=== PATIENT | male | born 1980 | race African-American/Black ===

== ENCOUNTER 2020-04-26 17:20 | Emergency (ER) | payer OTHER ==
[~2020-04-26] VITALS: Ht 160 cm; Wt 90.0 kg
[2020-04-26] MEDS ORDERED: METFORMIN (17:28)
[2020-04-26] MEDS ORDERED: BP MED (17:28)
[2020-04-26] MEDS ORDERED: [UNRECOGNIZED DRUG - OTHER] (17:28)
[2020-04-26] MEDS ORDERED: OMEP-218 (17:28)
[2020-04-26] MEDS ORDERED: IBUPROFEN 800 MG TAB PO ONE (18:30)
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
[2020-04-26 19:53] VITALS: BP 160/100
== END 2020-04-26 20:02 | disposition home or self-care (01) ==
LOC: M ED 17:20
DX: S46.911A Strain of unspecified muscle, fascia and tendon at shoulder and upper arm level, right arm, initial encounter (principal); S62.306A Unspecified fracture of fifth metacarpal bone, right hand, initial encounter for closed fracture; V49.40XA Driver injured in collision with unspecified motor vehicles in traffic accident, initial encounter

== ENCOUNTER 2020-09-23 13:06 | Emergency (ER) | payer OTHER ==
[~2020-09-23] VITALS: Ht 160 cm; Wt 84.2 kg
[~2020-09-23 13:06] MED LIST: BP MED; METFORMIN; OMEP-218; [UNRECOGNIZED DRUG - OTHER]
[2020-09-23] MEDS ORDERED: METF500T13 PO (13:40)
[2020-09-23] MEDS ORDERED: ROSU20TA5 PO (13:41)
[2020-09-23] MEDS ORDERED: MELO15TA28 PO (13:42)
[2020-09-23] MEDS ORDERED: D3 +TAB PO (13:42)
[2020-09-23] MEDS ORDERED: NESI12.5 PO (13:43)
[2020-09-23] MEDS ORDERED: NS 1,000 ML IV ONE (14:00)
[2020-09-23 14:08] LABS: BASO % 0.2 % (0.0-1.0); EOS % 0.2 % (0.0-3.0); HEMATOCRIT 39.1 % (42.0-52.0); HEMOGLOBIN 12.8 g/dl (13.5-17.5); LYMPH % 17.2 % (24.0-44.0); MEAN CORPUSCULAR HEMOGLOBIN 26.7 pg (27.0-33.0); MEAN CORPUSCULAR HGB CONC 32.7 g/dl (32.0-36.5); MEAN CORPUSCULAR VOLUME 81.5 fl (80.0-96.0); MONO # 0.4 10^3/uL (0.0-0.8); MONO % 5.9 % (0.0-5.0); NEUTROPHILS # 4.5 10^3/uL (1.5-8.5); NEUTROPHILS % 76.2 % (36.0-66.0); PLATELET COUNT, AUTOMATED 187 10^3/uL (150-450); WHITE BLOOD COUNT 5.9 10^3/uL (4.0-10.0)
[2020-09-23 14:09] LABS: AMORPHOUS SEDIMENT SMALL (NEGATIVE); APPEARANCE, URINE CLOUDY (CLEAR); BACTERIA, URINE AUTO NEGATIVE (NEGATIVE); BILIRUBIN, URINE AUTO NEGATIVE (NEGATIVE); BLOOD, URINE BLOOD 2+ (NEGATIVE); COLOR, URINE YELLOW (YELLOW); GLUCOSE, URINE (UA) AUTO 1+ mg/dL (NEGATIVE); GRANULAR CAST, URINE AUTO 7 /LPF; KETONE, URINE AUTO 1+ mg/dL (NEGATIVE); LEUKOCYTE ESTERASE, URINE AUTO NEGATIVE (NEGATIVE); MUCUS, URINE SMALL (NEGATIVE); NITRITE, URINE AUTO NEGATIVE (NEGATIVE); PROTEIN, URINE AUTO 3+ mg/dL (NEGATIVE); RBC, URINE AUTO 1 /HPF (0-3); SPECIFIC GRAVITY URINE AUTO 1.025 (1.002-1.035); SQUAMOUS EPITHELIAL CELL UR AU 1 /HPF (0-6); UROBILINOGEN, URINE AUTO 0.2 mg/dL (0.0-2.0); WBC, URINE AUTO 2 /HPF (0-3)
--- NOTE | 2020-09-23 14:28 | REP ---
INDICATION: constipation, chest pressure. COMPARISON: 06/18/2010. TECHNIQUE: Supine and erect views of the abdomen are performed as well as a PA view of the chest. FINDINGS: There is no evidence of free intraperitoneal air. There is no evidence of bowel obstruction. No significantly dilated bowel loops are seen. There are vascular calcifications in the pelvis. The visualized osseous structures appear unremarkable. Diffuse patchy infiltrates are seen throughout both lungs. The heart is not enlarged. The mediastinal silhouette appears unremarkable. IMPRESSION: No free air or obstruction. Diffuse bilateral infiltrates in the lungs. <Electronically signed by Clifton Larkin > 09/23/20 [id number]
[2020-09-23 15:13] LABS: RSV AMPLIFICATION NEGATIVE (NEGATIVE)
[2020-09-23] MEDS ORDERED: ACETAMINOPHEN 325 MG TAB PO ONE (16:00)
[2020-09-23] MEDS ORDERED: ALBUTEROL 90 MCG/ACT 8GM HFA INHALER INH ONE (16:00)
[2020-09-23] MEDS ORDERED: NS 1,000 ML IV SCH (16:13)
[2020-09-23] MEDS ORDERED: ACETAMINOPHEN TAB 650MG DOSE (2X325MG) PO ONE (16:15)
[2020-09-23] MEDS ORDERED: diphenhydrAMINE 50MG CAP PO ONE (16:15)
[2020-09-23] MEDS ORDERED: methylPREDNISolone 125MG 2ML VIAL IV PRN (16:15)
[2020-09-23] MEDS ORDERED: CASIRIVIMAB (REGN10933) 1,200 MG, IMDEVIMAB (REGN10987) 1,200 MG in NS 230 ML IV ONE (16:15)
[2020-09-23] MEDS ORDERED: ALBUTEROL 90 MCG/ACT 8GM HFA INHALER INH PRN (16:15)
[2020-09-23] MEDS ORDERED: ALBUTEROL SULFATE 2.5 MG/0.5 ML INH NEB SOLN INH PRN (16:15)
[2020-09-23] MEDS ORDERED: methylPREDNISolone 125MG 2ML VIAL IV ONE (16:15)
[2020-09-23] MEDS ORDERED: EPINEPHrine INJ 1 MG/ML 1ML AMP IM PRN (16:15)
[2020-09-23] MEDS ORDERED: diphenhydrAMINE 50MG/ML VIAL (J1200) IV PRN (16:15)
[2020-09-23 16:51] VITALS: BP 105/69
[2020-09-23] MEDS ORDERED: MIRA3350 PO (17:38)
[2020-09-23] MEDS ORDERED: COLA100C5 PO (17:38)
--- NOTE | 2020-09-23 19:13 | CR ---
CONSULTATION DATE: 09/23/2020 REQUESTING PHYSICIAN: Dr. Larkin in the emergency room. HISTORY OF PRESENT ILLNESS: This is an ER evaluation for this 40-year-old type 2 diabetic with hyperlipidemia who presented with nausea, vomiting, diarrhea, and was found to be COVID positive and is a candidate for monoclonal antibody therapy, who is being treated as an outpatient for through the hospitalist serve for this. PAST MEDICAL HISTORY: 1. Vitamin D deficiency. 2. Type 2 diabetes. 3. Hyperlipidemia. ALLERGIES: None known. SOCIAL HISTORY: Unremarkable. REVIEW OF SYSTEMS: No polyuria or polydipsia. No rectal bleeding or epistaxis. No history of severe allergic problems. PHYSICAL EXAMINATION: VITAL SIGNS: Per flow sheet. GENERAL APPEARANCE: Alert and conversant, in no distress. LUNGS: Clear. HEART: Regular rhythm. ABDOMEN: Soft and nontender. No masses. EXTREMITIES: No peripheral edema. Normal strength of the arms and legs. No warmth or swelling of the joints. No lymphadenopathy. LABORATORY DATA: CBC with white count 5.9, hemoglobin 12.8, platelets 187,000. COVID was positive. Sodium 140, potassium 4.1, BUN 15, creatinine 1.0, glucose 114. IMAGING DATA: Abdominal x-rays were unremarkable. He had diffuse bilateral infiltrates in the lungs that were visualized. IMPRESSION: COVID infection. The patient's O2 saturation is in the mid 90s and does not warrant admission. He would be a candidate for monoclonal antibody therapy, which I ordered. He should follow-up with primary care provider. Appropriate precautions about monoclonal antibody provided. He signed consent. He should forego vaccination for COVID-19 for at least 60-90 days from positive COVID infection and receiving monoclonal antibody. He is aware of this.
[2020-09-24] MEDS ORDERED: METF-838 PO (17:27)
[2020-09-24] MEDS ORDERED: ACET-683 PO (17:27)
[2020-09-24] MEDS ORDERED: ROSU40TA4 PO (17:27)
[2020-09-24] MEDS ORDERED: POLY1POW38 PO (17:27)
[2020-09-24] MEDS ORDERED: D-10TAB2 PO (17:27)
[2020-09-24] MEDS ORDERED: OMEP-221 PO (17:27)
[2020-09-24] MEDS ORDERED: DOCU100C16 PO (17:28)
== END 2020-09-23 17:28 | disposition home or self-care (01) ==
LOC: M ED 13:06
DX: J12.9 Viral pneumonia, unspecified (principal); U07.1 COVID-19; K59.00 Constipation, unspecified; I10 Essential (primary) hypertension; E11.9 Type 2 diabetes mellitus without complications; E55.9 Vitamin D deficiency, unspecified; E78.5 Hyperlipidemia, unspecified; K21.9 Gastro-esophageal reflux disease without esophagitis; Z79.899 Other long term (current) drug therapy; Z79.84 Long term (current) use of oral hypoglycemic drugs

== ENCOUNTER 2020-09-23 17:30 | Outpatient (CLI) | payer OTHER ==
[~2020-09-23] VITALS: Ht 160 cm; Wt 86.1 kg
[~2020-09-23 17:30] MED LIST changes: +ALBUTEROL 90 MCG/ACT 8GM HFA INHALER INH PRN; +ALBUTEROL SULFATE 2.5 MG/0.5 ML INH NEB SOLN INH PRN; +D3 +TAB PO; +EPINEPHrine INJ 1 MG/ML 1ML AMP IM PRN; +MELO15TA28 PO; +METF500T13 PO; +NESI12.5 PO; +ROSU20TA5 PO; +diphenhydrAMINE 50MG/ML VIAL (J1200) IV PRN; +methylPREDNISolone 125MG 2ML VIAL IV PRN
[2020-09-23] MEDS ORDERED: MIRA3350 PO (17:38)
[2020-09-23] MEDS ORDERED: COLA100C5 PO (17:38)
[2020-09-23 17:46] VITALS: BP 139/82
[2020-09-23] MEDS ORDERED: diphenhydrAMINE 50MG CAP PO ONE (18:00)
[2020-09-23] MEDS ORDERED: NS 1,000 ML IV SCH (18:00)
[2020-09-23] MEDS ORDERED: ACETAMINOPHEN TAB 650MG DOSE (2X325MG) PO ONE (18:00)
[2020-09-23] MEDS ORDERED: methylPREDNISolone 40MG 1ML VIAL IV ONE (18:00)
[2020-09-23 18:20] VITALS: BP 155/75
[2020-09-23] MEDS ORDERED: CASIRIVIMAB (REGN10933) 1,200 MG, IMDEVIMAB (REGN10987) 1,200 MG in NS 230 ML IV ONE (18:30)
[2020-09-23 18:34] VITALS: BP 138/83
[2020-09-23 19:05] VITALS: BP 137/84
[2020-09-23 19:39] VITALS: BP 136/84
[2020-09-23 20:28] VITALS: BP 137/81
[2020-09-24] MEDS ORDERED: ROSU40TA4 PO (17:27)
[2020-09-24] MEDS ORDERED: OMEP-221 PO (17:27)
[2020-09-24] MEDS ORDERED: POLY1POW38 PO (17:27)
[2020-09-24] MEDS ORDERED: D-10TAB2 PO (17:27)
[2020-09-24] MEDS ORDERED: METF-838 PO (17:27)
[2020-09-24] MEDS ORDERED: ACET-683 PO (17:27)
[2020-09-24] MEDS ORDERED: DOCU100C16 PO (17:28)
== END 2020-09-23 20:50 | disposition home or self-care (01) ==
LOC: M OPCLI4 17:30 → M 4MAIN 17:35 → M OPCLI4 20:50
PROVIDERS: ATTEND Family Medicine
DX: U07.1 COVID-19 (principal)

== ENCOUNTER 2020-09-24 15:18 | Inpatient (IN) | payer OTHER ==
[~2020-09-24] VITALS: Ht 160 cm; Wt 84.1 kg
[~2020-09-24 15:18] MED LIST changes: -ALBUTEROL 90 MCG/ACT 8GM HFA INHALER INH PRN; -ALBUTEROL SULFATE 2.5 MG/0.5 ML INH NEB SOLN INH PRN; +COLA100C5 PO; -EPINEPHrine INJ 1 MG/ML 1ML AMP IM PRN; +MIRA3350 PO; -diphenhydrAMINE 50MG/ML VIAL (J1200) IV PRN; -methylPREDNISolone 125MG 2ML VIAL IV PRN
[2020-09-24 16:09] LABS: BASO % 0.1 % (0.0-1.0); HEMATOCRIT 38.8 % (42.0-52.0); HEMOGLOBIN 12.7 g/dl (13.5-17.5); LYMPH # 0.8 10^3/uL (1.5-5.0); LYMPH % 6.5 % (24.0-44.0); MEAN CORPUSCULAR HEMOGLOBIN 26.5 pg (27.0-33.0); MEAN CORPUSCULAR HGB CONC 32.7 g/dl (32.0-36.5); MEAN CORPUSCULAR VOLUME 80.8 fl (80.0-96.0); MONO # 0.4 10^3/uL (0.0-0.8); MONO % 3.2 % (0.0-5.0); NEUTROPHILS # 10.6 10^3/uL (1.5-8.5); NEUTROPHILS % 89.6 % (36.0-66.0); PLATELET COUNT, AUTOMATED 209 10^3/uL (150-450); WHITE BLOOD COUNT 11.8 10^3/uL (4.0-10.0)
[2020-09-24 16:14] LABS: INR 1.02; PROTHROMBIN TIME 13.6 SECONDS (12.5-14.3)
[2020-09-24 16:17] LABS: D-DIMER QUANT 1317.85 ng/ml (<500)
--- NOTE | 2020-09-24 16:38 | REP ---
INDICATION: DYSPNEA/COUGH COMPARISON: 09/23/2020 TECHNIQUE: Portable AP view of the chest FINDINGS: Diffuse bilateral infiltrates are again noted and may be slightly increased from prior examination. No effusion. No pneumothorax. Mediastinum and cardiac silhouette normal. IMPRESSION: Increasing bilateral infiltrates. Patient should be evaluated for COVID-19 disease. <Electronically signed by Albert Castrejon > 09/24/20 [id number]
[2020-09-24 16:43] LABS: ALBUMIN 2.8 GM/DL (3.2-5.2); ALT/SGPT 22 U/L (12-78); BILIRUBIN,DIRECT 0.2 MG/DL (0.0-0.2); BILIRUBIN,TOTAL 0.6 MG/DL (0.2-1.0); BLOOD UREA NITROGEN 25 MG/DL (7-18); CALCIUM LEVEL 8.8 MG/DL (8.5-10.1); CARBON DIOXIDE LEVEL 24 MEQ/L (21-32); CHLORIDE LEVEL 101 MEQ/L (98-107); CK-MB VALUE MASS < 1.0 NG/ML (<3.6); CPK CREATINE PHOSPHOKINASE 343 U/L (39-308); CREATININE FOR GFR 1.57 MG/DL (0.70-1.30); FERRITIN 705 NG/ML (26-388); GLOMERULAR FILTRATION RATE > 60.0 (>60); GLUCOSE, FASTING 185 MG/DL (70-100); LDH LACTATE DEHYDROGENASE 488 U/L (87-241); MB/CK RELATIVE INDEX 0.29 (< OR =4); NT-PRO BNP 549 PG/ML (<125); POTASSIUM SERUM 4.2 MEQ/L (3.5-5.1); SODIUM LEVEL 134 MEQ/L (136-145); THYROXINE (T4) 8.9 UG/DL (4.5-12.0); TROPONIN I < 0.02 NG/ML (< 0.10)
[2020-09-24] MEDS ORDERED: dexameTHASONE 20MG/5ML VIAL (J1100 PER 1MG) IV ONE (17:00)
[2020-09-24] MEDS ORDERED: OMEP-221 PO (17:27)
[2020-09-24] MEDS ORDERED: D-10TAB2 PO (17:27)
[2020-09-24] MEDS ORDERED: ACET-683 PO (17:27)
[2020-09-24] MEDS ORDERED: ROSU40TA4 PO (17:27)
[2020-09-24] MEDS ORDERED: METF-838 PO (17:27)
[2020-09-24] MEDS ORDERED: POLY1POW38 PO (17:27)
[2020-09-24] MEDS ORDERED: DOCU100C16 PO (17:28)
[2020-09-24] MEDS ORDERED: GLUCOSE 4GM CHEW TABLET PO PRN (18:00)
[2020-09-24] MEDS ORDERED: GLUCAGON INJ 1MG VIAL SC PRN (18:00)
[2020-09-24] MEDS ORDERED: DEXTROSE 50% 50 ML SYRINGE IV PRN (18:00)
[2020-09-24] MEDS ORDERED: ENOXAPARIN 80MG/0.8ML SYRINGE (J1650 PER 10MG) SC SCH (18:00)
[2020-09-24 18:39] LABS: BASO % 0.1 % (0.0-1.0); HEMOGLOBIN 12.2 g/dl (13.5-17.5); LYMPH # 0.7 10^3/uL (1.5-5.0); MEAN CORPUSCULAR HEMOGLOBIN 26.4 pg (27.0-33.0); MEAN CORPUSCULAR VOLUME 80.1 fl (80.0-96.0); MONO # 0.3 10^3/uL (0.0-0.8); MONO % 2.4 % (0.0-5.0); NEUTROPHILS # 9.2 10^3/uL (1.5-8.5); PLATELET COUNT, AUTOMATED 205 10^3/uL (150-450); RED BLOOD COUNT 4.62 10^6/uL (4.30-6.10); WHITE BLOOD COUNT 10.2 10^3/uL (4.0-10.0)
[2020-09-24 18:48] LABS: INR 1.08; PROTHROMBIN TIME 14.2 SECONDS (12.5-14.3)
[2020-09-24 18:49] LABS: PARTIAL THROMBOPLASTIN TIME 34.9 SECONDS (24.2-38.5)
[2020-09-24 18:52] LABS: D-DIMER QUANT 1242.13 ng/ml (<500)
[2020-09-24 19:13] LABS: ALT/SGPT 20 U/L (12-78); BLOOD UREA NITROGEN 26 MG/DL (7-18); CALCIUM LEVEL 8.7 MG/DL (8.5-10.1); CARBON DIOXIDE LEVEL 22 MEQ/L (21-32); CHLORIDE LEVEL 103 MEQ/L (98-107); CPK CREATINE PHOSPHOKINASE 337 U/L (39-308); CREATININE FOR GFR 1.48 MG/DL (0.70-1.30); GLOMERULAR FILTRATION RATE > 60.0 (>60); GLUCOSE, FASTING 186 MG/DL (70-100); LDH LACTATE DEHYDROGENASE 518 U/L (87-241); POTASSIUM SERUM 4.2 MEQ/L (3.5-5.1); SODIUM LEVEL 135 MEQ/L (136-145)
[2020-09-24 19:14] LABS: ALBUMIN 2.6 GM/DL (3.2-5.2); BILIRUBIN,DIRECT 0.2 MG/DL (0.0-0.2); BILIRUBIN,TOTAL 0.5 MG/DL (0.2-1.0); FERRITIN 706 NG/ML (26-388); MAGNESIUM LEVEL 2.2 MG/DL (1.8-2.4); NT-PRO BNP 526 PG/ML (<125); TOTAL PROTEIN 6.7 GM/DL (6.4-8.2); TROPONIN I < 0.02 NG/ML (< 0.10)
[2020-09-24] MEDS ORDERED: REMDESIVIR 200 MG in NS 250 ML IV ONE (20:00)
[2020-09-24 20:45] VITALS: BP 170/94; O2SAT 90
[2020-09-24] MEDS: HumaLOG INSULIN (NovoLOG) PER UNIT SC SCH (21:47)
[2020-09-24] MEDS ORDERED: SODIUM CHLORIDE 0.9% INJ 10 ML SYR IV ONE (22:00)
[2020-09-25] VITALS (7 sets, daily range): BP systolic 144–172; BP diastolic 74–91; O2SAT 92–93
[2020-09-25 07:34] LABS: HEMOGLOBIN 12.1 g/dl (13.5-17.5); MEAN CORPUSCULAR HEMOGLOBIN 26.5 pg (27.0-33.0); MEAN CORPUSCULAR HGB CONC 32.7 g/dl (32.0-36.5); PLATELET COUNT, AUTOMATED 213 10^3/uL (150-450); RED BLOOD COUNT 4.57 10^6/uL (4.30-6.10)
[2020-09-25 08:03] LABS: ALBUMIN 2.3 GM/DL (3.2-5.2); ALT/SGPT 18 U/L (12-78); BILIRUBIN,DIRECT < 0.1 MG/DL (0.0-0.2); BILIRUBIN,TOTAL 0.3 MG/DL (0.2-1.0); BLOOD UREA NITROGEN 31 MG/DL (7-18); CALCIUM LEVEL 8.5 MG/DL (8.5-10.1); CARBON DIOXIDE LEVEL 22 MEQ/L (21-32); CHLORIDE LEVEL 104 MEQ/L (98-107); CREATININE FOR GFR 1.55 MG/DL (0.70-1.30); GLOMERULAR FILTRATION RATE > 60.0 (>60); GLUCOSE, FASTING 261 MG/DL (70-100); MAGNESIUM LEVEL 2.3 MG/DL (1.8-2.4); POTASSIUM SERUM 4.2 MEQ/L (3.5-5.1); SODIUM LEVEL 136 MEQ/L (136-145); TOTAL PROTEIN 7.5 GM/DL (6.4-8.2)
--- NOTE | 2020-09-25 08:54 | ECGEPIP ---
[facility] - ED Test Date: 2020-09-24 Pat Name: AMALIA MUNGUIA Department: Room: - Gender: Male Credit Director: ty : 1980 Requested By: DIETER Haley Order Number: [id number] Reading MD: Vianca Walsh Measurements Intervals Winn Rate: 116 P: 45 NC: 132 QRS: 31 QRSD: 83 T: 30 QT: 313 QTc: 436 Interpretive Statements SINUS TACHYCARDIA NSTTW abnormalities NO PRIOR Electronically Signed on 09-25-2020 8:54:32 EST by Vianca Walsh
[2020-09-25] MEDS ORDERED: INFLUENZA QUADRIVALENT PF VACCINE 0.5ML SYRINGE IM ONE (09:00)
[2020-09-25] MEDS: ASPIRIN 81 MG ENTERIC TAB PO SCH (10:14)
[2020-09-25] MEDS: PANTOPRAZOLE 40MG TAB (PROTONIX) PO SCH (10:14)
[2020-09-25] MEDS: dexameTHASONE 4 MG/ML 1ML VIAL (J1100 PER 1MG) IV SCH (10:15)
[2020-09-25] MEDS: HumaLOG INSULIN (NovoLOG) PER UNIT SC SCH ×4 (10:15→21:00)
[2020-09-25] MEDS: amLODIPine 5 MG TAB PO SCH (10:51)
[2020-09-25] MEDS: ZINC SULFATE 220 MG CAP PO SCH (10:51)
[2020-09-25] MEDS: ASCORBIC ACID 250 MG TAB PO SCH (10:51)
[2020-09-25] MEDS: ENOXAPARIN 40MG/0.4ML SYRINGE (J1650 PER 10MG) SC SCH ×2 (10:52→21:14)
[2020-09-25] MEDS: CALCIUM CARBONATE 500 MG CHEW U/D PO PRN (18:31)
--- NOTE | 2020-09-25 18:39 | IPNPDOC ---
Text Note Date of Service The patient was seen on 09/25/20. NOTE Subjective No acute events overnight. Patient has been afebrile since admission. He is sating at 90% on 5L nasal canula and has been hypertensive since time of admis cory. Patient admits to exertional shortness of breath. He denies any headache, visual changes, sore throat, cough, congestion, edema. Objective VITAL SIGNS: Please see below. GENERAL: Patient was interviewed and examined in his hospital room. He was found to be resting comfortably. HEENT: normocephalic, atraumatic, EOMI, sclera nonicteric, MMM CARDIOVASCULAR EXAMINATION: Regular rate and rhythm, no appreciable murmur RESPIRATORY EXAMINATION: Clear to auscultation with fair air movement. No wheezes or rales, examination limited by disposable stethoscope. EXTREMITIES: Radial and posterior tibial pulses 2+ bilaterally. No lower extremity swelling or edema. Patient is able to move his extremities without difficulty. No calf tenderness bilaterally. SKIN: No appreciable rashes or new skin lesions NEUROLOGICAL EXAMINATION: Awake, alert, oriented 3, cranial nerves are grossly intact Assessment/Plan Mr. Curran is a 40 y.o. male with history of type 2 DM, hyperlipidemia, hypertension, and sleep apnea (uses C-PAP at home) who initially presented to the ED on 09/23 complaining of abdominal pain, nausea, vomiting, and diarrhea. He was tested positive for COVID at that time. He was taken from the ED to be treated with monoclonal antibodies as outpatient on that same day. His infusion was completed at 1939 on 09/23 and he was subsequently discharged home. On 09/24 he noticed that his pulse ox was low and called Home Health, after which he was instructed to present to the ED. Upon his arrival at ED he was sating at 82% on room air and was admitted. # Pneumonia with hypoxia 2/2 to COVID-19 - Patient is currently on 5 L nasal canula. Will continue to monitor sats - Currently on Remdesivir day#2 - Zinc and vitamin C PO daily ordered - Patient received monoclonal antibody therapy on 09/23 - Have patient using incentive spirometer, proning, and out of bed to chair 3 times a day # Hypertension - Given amlodipine 5 mg PO daily - If patient's pressures remain elevated, plan to discharge on GUSTABO inhibitor given patient's ethnicity and comorbid diabetes. # Type 2 Diabetes Mellitus - Continue with Humalog insulin Disposition Anticipate discharge within the next 2-3 days. DVT Prophylaxis Patient originally given 80 mg Lovenox BID. Dose has been decreased to 40 mg Lovenox BID VS,Fishbone, I+O VS, Fishbone, I+O Laboratory Tests 09/24/20 15:47 09/24/20 18:25 09/25/20 07:01 Vital Signs Date Time Temp Pulse Resp B/P (MAP) Pulse Ox O2 Delivery O2 Flow Rate FiO2 09/25/20 10:51 97 167/87 09/25/20 08:00 98.8 20 90 Nasal Cannula 5.0 I&O- Last 24 Hours up to 6 AM 09/25/20 06:00 Intake Total 0 ml Output Total 0 ml Balance 0 ml GME ATTESTATION GME ATTESTATION My faculty preceptor for this patient encounter was physically present during the encounter and was fully available. All aspects of the patient interview, examination, medical decision making process, and medical care plan development were reviewed and approved by the faculty preceptor. The faculty preceptor is aware and concurs with the plan as stated in the body of this note and will attest to such by his/her cosignature. ATTENDING NOTE I, Tony Ocampo MD, have independently examined this patient and performed my own physical exam, as well as reviewed the documentation and edited where necessary. I have discussed in detail with the resident / student the findings and plan of treatment as documented by the resident / student and edited their note. I agree with their findings and treatment plan and have edited their documentation. GME ATTESTATION GME ATTESTATION My faculty preceptor for this patient encounter was physically present during the encounter and was fully available. All aspects of the patient interview, examination, medical decision making process, and medical care plan development were reviewed and approved by the faculty preceptor. The faculty preceptor is aware and concurs with the plan as stated in the body of this note and will attest to such by his/her cosignature. Joelle BOCANEGRA OMS-3 Sep 25, 2020 11:19 LISETH DENNEY DO Sep 25, 2020 18:39 TONY OCAMPO MD Sep 28, 2020 14:19
[2020-09-25] MEDS: REMDESIVIR 100 MG in NS 250 ML IV SCH (21:14)
[2020-09-25] MEDS: SODIUM CHLORIDE 0.9% INJ 10 ML SYR IV SCH (21:16)
[2020-09-26 04:51] VITALS: BP 132/78
[2020-09-26] MEDS: cefTRIAXone SOD 1 GM in D5W MINI-BAG PLUS 50 ML IV SCH (05:00)
[2020-09-26] MEDS: AZITHROMYCIN INJ 500 MG, VIAL MATE ADAPTER 1 EACH in D5W 250 ML IV SCH (05:54)
--- NOTE | 2020-09-26 06:03 | REPVR ---
PROCEDURE INFORMATION: Exam: XR Chest, 1 View Exam date and time: 09/26/2020 5:24 AM Age: 40 years old Clinical indication: Other: Covid; Additional info: Increasing oxygen requirements TECHNIQUE: Imaging protocol: XR of the chest Views: 1 view. COMPARISON: CR PORTABLE CHEST X-RAY 09/24/2020 4:17 PM FINDINGS: Lungs: There is bilateral patchy lung infiltrates. Pleural spaces: Unremarkable. No pleural effusion. No pneumothorax. Heart/Mediastinum: Unremarkable. No cardiomegaly. Bones/joints: Unremarkable. IMPRESSION: Patchy bilateral lung infiltrates, grossly unchanged. Findings are nonspecific and can be seen with multiple infectious and non infectious etiologies including COVID 19 pneumonia. Electronically signed by: Saurav Mandel On 09/26/2020 06:02:33 AM
[2020-09-26 06:34] LABS: HEMATOCRIT 36.6 % (42.0-52.0); HEMOGLOBIN 12.3 g/dl (13.5-17.5); MEAN CORPUSCULAR HEMOGLOBIN 27.2 pg (27.0-33.0); MEAN CORPUSCULAR HGB CONC 33.6 g/dl (32.0-36.5); PLATELET COUNT, AUTOMATED 231 10^3/uL (150-450); RED BLOOD COUNT 4.52 10^6/uL (4.30-6.10); WHITE BLOOD COUNT 9.5 10^3/uL (4.0-10.0)
[2020-09-26 06:54] LABS: INR 0.94; PROTHROMBIN TIME 12.8 SECONDS (12.5-14.3)
[2020-09-26 07:11] LABS: ALBUMIN 2.4 GM/DL (3.2-5.2); ALT/SGPT 18 U/L (12-78); BILIRUBIN,DIRECT 0.1 MG/DL (0.0-0.2); BILIRUBIN,TOTAL 0.3 MG/DL (0.2-1.0); BLOOD UREA NITROGEN 36 MG/DL (7-18); CALCIUM LEVEL 8.2 MG/DL (8.5-10.1); CARBON DIOXIDE LEVEL 24 MEQ/L (21-32); CHLORIDE LEVEL 105 MEQ/L (98-107); CPK CREATINE PHOSPHOKINASE 165 U/L (39-308); CREATININE FOR GFR 1.49 MG/DL (0.70-1.30); FERRITIN 903 NG/ML (26-388); GLOMERULAR FILTRATION RATE > 60.0 (>60); GLUCOSE, FASTING 209 MG/DL (70-100); LDH LACTATE DEHYDROGENASE 526 U/L (87-241); MAGNESIUM LEVEL 2.7 MG/DL (1.8-2.4); NT-PRO BNP 267 PG/ML (<125); POTASSIUM SERUM 4.2 MEQ/L (3.5-5.1); SODIUM LEVEL 139 MEQ/L (136-145); TOTAL PROTEIN 6.6 GM/DL (6.4-8.2); TROPONIN I < 0.02 NG/ML (< 0.10)
[2020-09-26] MEDS: ASCORBIC ACID 250 MG TAB PO SCH (07:51)
[2020-09-26] MEDS: ASPIRIN 81 MG ENTERIC TAB PO SCH (07:51)
[2020-09-26] MEDS: dexameTHASONE 4 MG/ML 1ML VIAL (J1100 PER 1MG) IV SCH (07:52)
[2020-09-26] MEDS: PANTOPRAZOLE 40MG TAB (PROTONIX) PO SCH (07:52)
[2020-09-26] MEDS: ZINC SULFATE 220 MG CAP PO SCH (07:52)
[2020-09-26] MEDS: ENOXAPARIN 40MG/0.4ML SYRINGE (J1650 PER 10MG) SC SCH ×2 (07:52→20:04)
[2020-09-26] MEDS: HumaLOG INSULIN (NovoLOG) PER UNIT SC SCH ×4 (07:53→20:08)
[2020-09-26] MEDS: amLODIPine 5 MG TAB PO SCH (07:55)
[2020-09-26 08:00] VITALS: BP 148/76; O2SAT 92
--- NOTE | 2020-09-26 11:24 | IPNPDOC ---
Text Note Date of Service The patient was seen on 09/26/20. NOTE Subjective Patient was desating overnight to around 87% on 5L NC. Vapotherm was initiated at 70FiO2 with significant improvement. so he was started on vapotherm and patient reports sleeping better on vapotherm. Patient has been afebrile and hypertensive since time of admission. Patient admits to exertional shortness of breath. He denies any headache, visual ch anges, sore throat, cough, congestion, edema. Objective VITAL SIGNS: Please see below. GENERAL: Patient was interviewed and examined in his hospital room. He was found to be resting comfortably watching television. He did not appear in acute distress. HEENT: normocephalic, atraumatic, EOMI, sclera nonicteric, MMM CARDIOVASCULAR EXAMINATION: Regular rate and rhythm, no appreciable murmur RESPIRATORY EXAMINATION: Clear to auscultation with fair air movement. No wheezes or rales, examination limited by disposable stethoscope. EXTREMITIES: Radial and posterior tibial pulses 2+ bilaterally. No lower extremity swelling or edema. Patient is able to move his extremities without difficulty. No calf tenderness bilaterally. SKIN: No appreciable rashes or new skin lesions NEUROLOGICAL EXAMINATION: Awake, alert, oriented 3, cranial nerves are grossly intact Assessment/Plan Mr. Curran is a 40 y.o. male with history of type 2 DM, hyperlipidemia, hypertension, and sleep apnea (uses C-PAP at home) who initially presented to the ED on 09/23 complaining of abdominal pain, nausea, vomiting, and diarrhea. He was tested positive for COVID at that time. He was taken from the ED to be treated with monoclonal antibodies as outpatient on that same day. His infusion was completed at 1939 on 09/23 and he was subsequently discharged home. On 09/24 he noticed that his pulse ox was low and called Home Health, after which he was instructed to present to the ED. Upon his arrival at ED he was sating at 82% on room air and was admitted. The evening of 09/25/20, patient was struggling to maintain a saturation of >90% on 5 L NC. He was transitioned to high flow NC and ultimately to Vapotherm. This am, patient continues on Vapotherm with a saturation of 93-94%. # Pneumonia with hypoxia 2/2 to COVID-19 - Patient was switched from 5L nasal canula to vapotherm overnight due to sats dropping to 87%. Will continue to monitor sats - Azithromycin and ceftriaxone started due to the fact that patient desated overnight and had a slightly elevated procalcitonin - Currently on Remdesivir day#3 - Zinc and vitamin C PO daily ordered - Patient received monoclonal antibody therapy on 09/23 - Have patient using incentive spirometer, proning, and out of bed to chair 3 times a day - Will order CRP, ESR, and D-dimer # Hypertension - Given amlodipine 5 mg PO daily - Normotensive today - If patient's pressures remain elevated, plan to discharge on GUSTABO inhibitor given patient's ethnicity and comorbid diabetes. # Type 2 Diabetes Mellitus - Continue with Humalog insulin Disposition Anticipate discharge within the next 2-3 days. DVT Prophylaxis 80 mg Lovenox BID. VS,Fishbone, I+O VS, Fishbone, I+O Laboratory Tests 09/26/20 05:59 Vital Signs Date Time Temp Pulse Resp B/P (MAP) Pulse Ox O2 Delivery O2 Flow Rate FiO2 09/26/20 08:00 97.3 84 18 148/76 (100) 90 HVNI-Vapotherm 15.0 70 I&O- Last 24 Hours up to 6 AM 09/26/20 06:00 Intake Total 1866 ml Output Total 1150 ml Balance 716 ml GME ATTESTATION GME ATTESTATION My faculty preceptor for this patient encounter was physically present during the encounter and was fully available. All aspects of the patient interview, examination, medical decision making process, and medical care plan development were reviewed and approved by the faculty preceptor. The faculty preceptor is aware and concurs with the plan as stated in the body of this note and will attest to such by his/her cosignature. ATTENDING NOTE I, Tony Ocampo MD, have independently examined this patient and performed my own physical exam, as well as reviewed the documentation and edited where necessary. I have discussed in detail with the resident / student the findings and plan of treatment as documented by the resident / student and edited their note. I agree with their findings and treatment plan and have edited their do cumentation. Joelle BOCANEGRA OMS-3 Sep 26, 2020 08:34 LISETH DENNEY DO Sep 26, 2020 11:24 TONY OCAMPO MD Sep 28, 2020 14:20
--- NOTE | 2020-09-26 11:26 | HPE ---
HISTORY AND PHYSICAL DATE OF ADMISSION: 09/24/2020 CHIEF COMPLAINT: Coronavirus disease of 2019 (COVID) pneumonia. HISTORY OF PRESENT ILLNESS: Mahesh Curran is a 40-year-old type-2 diabetic who presented to the Emergency Room with shortness of breath. He has a slight cough. He is known to be COVID positive. He was just admitted yesterday by me as an outpatient for monoclonal antibody treatment. He was COVID positive yesterday. He presented with nausea, vomiting, and diarrhea. He was found to be positive yesterday. He was treated with monoclonal antibody as an outpatient. PAST MEDICAL HISTORY: Type-2 diabetes, hyperlipidemia, vitamin D deficiency. ALLERGIES: None known. SOCIAL HISTORY: Nonsmoker. FAMILY HISTORY: Noncontributory. REVIEW OF SYSTEMS: No hemoptysis. Denies fever. He is still having loose stool but it is better. Crampy abdominal pain persists. No rectal bleeding. No epistaxis. MEDICATIONS: 1. Vitamin D 25 mcg daily. 2. Colace as needed. 3. Metformin ER 500 mg twice a day. 4. MiraLax as needed. 5. Rosuvastatin 40 mg daily. 6. Nesina 12.5 mg daily. 7. Omeprazole 40 mg daily. PHYSICAL EXAMINATION: VITAL SIGNS: Per flow sheet. I was told his O2 saturation was in the low 80s on room air, below 80 with ambulation. I do not find that documentation that came from the ER provider. Blood pressure 147/87, pulse 115, 99.6 degrees. GENERAL APPEARANCE: He is resting comfortably. He does not look terribly ill. He looks the same as yesterday. HEENT: Unremarkable. LUNGS: Scattered rhonchi and wheezes, rales. That is a change from yesterday. HEART: Regular rate and rhythm without murmur. ABDOMEN: Soft, nontender. No masses. EXTREMITIES: No clubbing, cyanosis, or edema. Normal strength in the arms and legs. Good distal pulses. LABS: White count 11.8, hemoglobin 12.7, platelets 209. Sodium 134, potassium 4.2, BUN 25, creatinine 1.5. Baseline creatinine is unknown. Lactic acid 1.6. Ferritin 705. CK 3400, LDH 4800. C-reactive protein 18. TSH normal. D-dimer 1317. IMPRESSION: 1. COVID pneumonia. He will be admitted to a COVID unit. Supplemental oxygen to maintain adequate O2 saturation, and given dexamethasone 6 mg IV daily and remdesivir. Prone positioning advised. 2. With his elevated d-dimer, I have done full anticoagulant Lovenox dosing. 3. Diabetes. Sliding scale Insulin with coverage. Restart oral agents once he is recovering. 4. Chronic kidney disease. His baseline creatinine is 1.3. It is 1.5 today. I am not giving him IV fluids. We are trying to keep him on the dry side. If he worsens he might need some IV hydration. 5. Hyperlipidemia. We will hold off on his rosuvastatin for now. He is on remdesivir which can affect his liver. 6. History of gastroesophageal reflux disease (GERD). Continue Protonix 40 mg daily, particularly in the face of the steroid therapy.
[2020-09-26 12:00] VITALS: O2SAT 89
[2020-09-26 16:00] VITALS: BP 158/98; O2SAT 90
[2020-09-26 20:00] VITALS: BP 150/88; O2SAT 90
[2020-09-26] MEDS: REMDESIVIR 100 MG in NS 250 ML IV SCH (20:04)
[2020-09-26] MEDS: SODIUM CHLORIDE 0.9% INJ 10 ML SYR IV SCH (21:10)
[2020-09-27] VITALS (9 sets, daily range): BP systolic 114–189; BP diastolic 75–90; O2SAT 93–96
[2020-09-27] MEDS: cefTRIAXone SOD 1 GM in D5W MINI-BAG PLUS 50 ML IV SCH (04:04)
[2020-09-27] MEDS: AZITHROMYCIN INJ 500 MG, VIAL MATE ADAPTER 1 EACH in D5W 250 ML IV SCH (05:05)
--- NOTE | 2020-09-27 06:33 | IPNPDOC ---
Text Note Date of Service The patient was seen on 09/27/20. NOTE Subjective No acute events overnight, patient remained on Vapotherm at 15 L 70% FiO2 yesterday. This morning, patient was weaned to 12 L 60% FiO2 and has been maintaining a saturation at 95%. Laboratory markers continue trend downward in the right direction. She was able to eat slightly more yesterday than before, he did have one formed bowel movement. Patient is denying any acute complaints including headache, shortness of breath, cough or wheeze, chest pain. Objective VITAL SIGNS: Please see below. GENERAL: Patient was interviewed and examined in his hospital room. He was found to be resting comfortably watching television. He did not appear in acute distress. HEENT: normocephalic, atraumatic, EOMI, sclera nonicteric, MMM CARDIOVASCULAR EXAMINATION: Regular rate and rhythm, no appreciable murmur RESPIRATORY EXAMINATION: Clear to auscultation with fair air movement. No wheezes or rales, examination limited by disposable stethoscope. EXTREMITIES: Radial and posterior tibial pulses 2+ bilaterally. No lower extremity swelling or edema. Patient is able to move his extremities without difficulty. No calf tenderness bilaterally. SKIN: No appreciable rashes or new skin lesions NEUROLOGICAL EXAMINATION: Awake, alert, oriented 3, cranial nerves are grossly intact Assessment/Plan Mr. Curran is a 40 y.o. male with history of type 2 DM, hyperlipidemia, hypertension, and sleep apnea (uses C-PAP at home) who initially presented to the ED on 09/23 complaining of abdominal pain, nausea, vomiting, and diarrhea. He was tested positive for COVID at that time. He was taken from the ED to be tr eated with monoclonal antibodies as outpatient on that same day. His infusion was completed at 1939 on 09/23 and he was subsequently discharged home. On 09/24 he noticed that his pulse ox was low and called Home Health, after which he was instructed to present to the ED. Upon his arrival at ED he was sating at 82% on room air and was admitted. The evening of 09/25/20, patient was struggling to maintain a saturation of >90% on 5 L NC. He was transitioned to high flow NC and ultimately to Vapotherm. The morning of 09/26/20 patient continued on Vapotherm with a saturation of 93-94%. Remain stable for much of the day. The morning of 09/27/20, patient was decreased from 70% to 60% FiO2 at 12 L/m. Patient appears to be maintaining a saturation of 95% this number. # Pneumonia with hypoxia 2/2 to COVID-19 - Patient was switched from 5L nasal canula to vapotherm overnight due to sats dropping to 87%. Will continue to monitor sats - Azithromycin and ceftriaxone started due to the fact that patient desated overnight and had a slightly elevated procalcitonin - Currently on Remdesivir day#3, will continue until patient's discharge or ten- day days, whichever comes first. - Zinc and vitamin C PO daily ordered - Patient received monoclonal antibody therapy on 09/23 - Have patient using incentive spirometer, proning, and out of bed to chair 3 times a day -Downtrending inflammatory markers -Continue to ween vapotherm today. -Physical therapy for treatment only # Hypertension - Given amlodipine 5 mg PO daily - Normotensive today - If patient's pressures remain elevated, plan to discharge on GUSTABO inhibitor given patient's ethnicity and comorbid diabetes. # Type 2 Diabetes Mellitus - Continue with Humalog insulin Disposition Anticipate discharge within the next 2-3 days. DVT Prophylaxis 80 mg Lovenox BID. VS,Fishbone, I+O VS, Fishbone, I+O Vital Signs Date Time Temp Pulse Resp B/P (MAP) Pulse Ox O2 Delivery O2 Flow Rate FiO2 09/27/20 06:23 95 HVNI-Vapotherm 12.0 60 09/27/20 04:00 98.3 87 18 156/90 (112) I&O- Last 24 Hours up to 6 AM 09/27/20 06:00 Intake Total 2185 ml Output Total 800 ml Balance 1385 ml GME ATTESTATION GME ATTESTATION My faculty preceptor for this patient encounter was physically present during the encounter and was fully available. All aspects of the patient interview, examination, medical decision making process, and medical care plan development were reviewed and approved by the faculty preceptor. The faculty preceptor is aware and concurs with the plan as stated in the body of this note and will attest to such by his/her cosignature. ATTENDING NOTE I, Tony Corley MD, have independently examined this patient and performed my own physical exam, as well as reviewed the documentation and edited where necessary. I have discussed in detail with the resident / student the findings and plan of treatment as documented by the resident / student and edited their note. I agree with their findings and treatment plan and have edited their documentation. LISETH DNENEY DO Sep 27, 2020 06:33 TONY CORLEY MD Sep 28, 2020 14:24
[2020-09-27 07:44] LABS: HEMATOCRIT 36.5 % (42.0-52.0); HEMOGLOBIN 11.9 g/dl (13.5-17.5); MEAN CORPUSCULAR HEMOGLOBIN 26.4 pg (27.0-33.0); MEAN CORPUSCULAR HGB CONC 32.6 g/dl (32.0-36.5); MEAN CORPUSCULAR VOLUME 80.9 fl (80.0-96.0); PLATELET COUNT, AUTOMATED 263 10^3/uL (150-450); RED BLOOD COUNT 4.51 10^6/uL (4.30-6.10); WHITE BLOOD COUNT 8.4 10^3/uL (4.0-10.0)
[2020-09-27] MEDS: HumaLOG INSULIN (NovoLOG) PER UNIT SC SCH ×4 (07:49→19:41)
[2020-09-27 07:59] LABS: D-DIMER QUANT 1002.2 ng/ml (<500)
[2020-09-27 08:20] LABS: BLOOD UREA NITROGEN 33 MG/DL (7-18); CARBON DIOXIDE LEVEL 24 MEQ/L (21-32); CHLORIDE LEVEL 106 MEQ/L (98-107); CREATININE FOR GFR 1.47 MG/DL (0.70-1.30); FERRITIN 792 NG/ML (26-388); GLOMERULAR FILTRATION RATE > 60.0 (>60); GLUCOSE, FASTING 172 MG/DL (70-100); MAGNESIUM LEVEL 2.7 MG/DL (1.8-2.4); POTASSIUM SERUM 4.1 MEQ/L (3.5-5.1); SODIUM LEVEL 140 MEQ/L (136-145)
[2020-09-27 08:31] LABS: ERYTHROCYTE SEDIMENTATION RATE 63 mm/hr (0-15)
[2020-09-27] MEDS: ASPIRIN 81 MG ENTERIC TAB PO SCH (08:42)
[2020-09-27] MEDS: ZINC SULFATE 220 MG CAP PO SCH (08:42)
[2020-09-27] MEDS: ASCORBIC ACID 250 MG TAB PO SCH (08:42)
[2020-09-27] MEDS: PANTOPRAZOLE 40MG TAB (PROTONIX) PO SCH (08:42)
[2020-09-27] MEDS: ENOXAPARIN 40MG/0.4ML SYRINGE (J1650 PER 10MG) SC SCH ×2 (08:43→19:40)
[2020-09-27] MEDS: amLODIPine 5 MG TAB PO SCH (08:43)
[2020-09-27] MEDS: dexameTHASONE 4 MG/ML 1ML VIAL (J1100 PER 1MG) IV SCH (08:43)
[2020-09-27] MEDS: CALCIUM CARBONATE 500 MG CHEW U/D PO PRN ×2 (13:02→17:38)
[2020-09-27] MEDS: REMDESIVIR 100 MG in NS 250 ML IV SCH (19:39)
[2020-09-27] MEDS: SODIUM CHLORIDE 0.9% INJ 10 ML SYR IV SCH (21:37)
[2020-09-28] MEDS: cefTRIAXone SOD 1 GM in D5W MINI-BAG PLUS 50 ML IV SCH (04:13)
[2020-09-28 04:18] VITALS: BP 132/78
[2020-09-28] MEDS: AZITHROMYCIN INJ 500 MG, VIAL MATE ADAPTER 1 EACH in D5W 250 ML IV SCH (05:15)
[2020-09-28 06:00] LABS: HEMATOCRIT 38.2 % (42.0-52.0); HEMOGLOBIN 12.6 g/dl (13.5-17.5); MEAN CORPUSCULAR HEMOGLOBIN 26.7 pg (27.0-33.0); MEAN CORPUSCULAR VOLUME 80.9 fl (80.0-96.0); PLATELET COUNT, AUTOMATED 270 10^3/uL (150-450); RED BLOOD COUNT 4.72 10^6/uL (4.30-6.10); WHITE BLOOD COUNT 6.8 10^3/uL (4.0-10.0)
[2020-09-28 06:09] LABS: INR 1.06
[2020-09-28 06:10] LABS: PARTIAL THROMBOPLASTIN TIME 33.2 SECONDS (24.2-38.5)
[2020-09-28 06:33] LABS: ALBUMIN 2.4 GM/DL (3.2-5.2); ALT/SGPT 29 U/L (12-78); BILIRUBIN,DIRECT 0.1 MG/DL (0.0-0.2); BILIRUBIN,TOTAL 0.4 MG/DL (0.2-1.0); BLOOD UREA NITROGEN 28 MG/DL (7-18); CALCIUM LEVEL 8.3 MG/DL (8.5-10.1); CARBON DIOXIDE LEVEL 27 MEQ/L (21-32); CHLORIDE LEVEL 106 MEQ/L (98-107); CPK CREATINE PHOSPHOKINASE 69 U/L (39-308); CREATININE FOR GFR 1.38 MG/DL (0.70-1.30); FERRITIN 705 NG/ML (26-388); GLOMERULAR FILTRATION RATE > 60.0 (>60); GLUCOSE, FASTING 122 MG/DL (70-100); LDH LACTATE DEHYDROGENASE 438 U/L (87-241); NT-PRO BNP 217 PG/ML (<125); SODIUM LEVEL 141 MEQ/L (136-145); TOTAL PROTEIN 6.4 GM/DL (6.4-8.2); TROPONIN I < 0.02 NG/ML (< 0.10)
[2020-09-28 08:00] VITALS: O2SAT 92
[2020-09-28] MEDS: dexameTHASONE 4 MG/ML 1ML VIAL (J1100 PER 1MG) IV SCH (08:31)
[2020-09-28] MEDS: HumaLOG INSULIN (NovoLOG) PER UNIT SC SCH ×2 (08:31→12:44)
[2020-09-28] MEDS: ENOXAPARIN 40MG/0.4ML SYRINGE (J1650 PER 10MG) SC SCH (08:31)
[2020-09-28] MEDS: ASPIRIN 81 MG ENTERIC TAB PO SCH (08:31)
[2020-09-28 08:33] VITALS: BP 160/82
[2020-09-28] MEDS: ZINC SULFATE 220 MG CAP PO SCH (08:33)
[2020-09-28] MEDS: PANTOPRAZOLE 40MG TAB (PROTONIX) PO SCH (08:33)
[2020-09-28] MEDS: amLODIPine 5 MG TAB PO SCH (08:33)
[2020-09-28] MEDS: ASCORBIC ACID 250 MG TAB PO SCH (08:33)
[2020-09-28 08:36] VITALS: BP 160/82
[2020-09-28] MEDS: CALCIUM CARBONATE 500 MG CHEW U/D PO PRN (09:57)
[2020-09-28] MEDS ORDERED: ZINC220CA PO (11:31)
[2020-09-28] MEDS ORDERED: VENTAER INH (11:31)
[2020-09-28] MEDS ORDERED: ASCO250T20 PO (11:31)
[2020-09-28] MEDS ORDERED: AMLO1TAB24 PO (11:31)
[2020-09-28] MEDS ORDERED: DEXA2TA PO (11:43)
--- NOTE | 2020-09-28 11:59 | DS.PDOC ---
Discharge Summary General Date of Admission Sep 24, 2020 at 17:37 Date of Discharge 09/28/20 Attending Physician: TONY OCAMPO MD Discharge Summary PROCEDURES PERFORMED DURING STAY: None ADMITTING DIAGNOSES: Covid-19 Pneumonia CKDIII DISCHARGE DIAGNOSES: Covid-19 Pneumonia with hypoxia Hypertension CKDIII Type 2 DM COMPLICATIONS/CHIEF COMPLAINT: Pna Due To Covid 19. HISTORY OF PRESENT ILLNESS: Patient is a 40-year-old -[place] gentleman with a history of type 2 diabetes who presented to the emergency room with a chief complaint of shortness of breath on 09/24/20. Patient had received monoclonal antibody treatment on 09/23/20. After which, he was sent home with a pulse ox and noted that his saturations were falling into the 80s. This prompted him to return to the emergency department further evaluation. He was found to be maintaining oxygen saturation in the low 80s on room air, dipping even below 80 with ambulation. She was admitted to the hospital further evaluation and management. HOSPITAL COURSE: Patient was admitted to the COVID unit started on dexamethasone and remdesivir. He was treated submental oxygen via nasal cannula. Pt was noted to be hypertensive. Pt reports that he has been aware of this, but has been unable to [facility]. He was placed on amlodipine 5 mg QD with good effect. During his first night of his admission, patient's saturation dipped despite NC. He was placed on high flow oxygen and then vapotherm. Given this increased requirement and elevated procalcitonin level, patient was started on antibiotics. Patient continued to demonstrate steady improvement in both function, oxygen requirement and inflammatory markers. On 09/26/20, patient was weaned from vapotherm back to high flow oxygen. On 09/27/20, patient was successfully weaned to nasal canula. The morning of discharge, patient was able to maintain a saturation of 95% on room air. Pt to de discharged home with services and supplemental oxygen. He will continue on oral steroids and will follow-up with his PCP in 1 week. Discharge, as well as his home medications, were discussed with the patient. He is in agreement with this plan. DISCHARGE MEDICATIONS: Please see below. ALLERGIES: Please see below. PHYSICAL EXAMINATION ON DISCHARGE: VITAL SIGNS: Please see below. GENERAL: Patient was interviewed and examined in his hospital room. He was found to be resting comfortably watching television. He did not appear in acute distress. HEENT: normocephalic, atraumatic, EOMI, sclera nonicteric, MMM CARDIOVASCULAR EXAMINATION: Regular rate and rhythm, no appreciable murmur RESPIRATORY EXAMINATION: Clear to auscultation with fair air movement. No wheezes or rales, examination limited by disposable stethoscope. EXTREMITIES: Radial and posterior tibial pulses 2+ bilaterally. No lower extremity swelling or edema. Patient is able to move his extremities without difficulty. No calf tenderness bilaterally. SKIN: No appreciable rashes or new skin lesions NEUROLOGICAL EXAMINATION: Awake, alert, oriented 3, cranial nerves are grossly intact LABORATORY DATA: Please see below. IMAGING: Chest XR (09/26/20): Patient is rotated to the right. No infiltrate is appreciated. PROGNOSIS: Fair ACTIVITY: As tolerated DIET: Diabetic Diet DISPOSITION: Home with services DISCHARGE INSTRUCTIONS: Please take your medications as prescribed, including your steroid, vitamin C and zinc supplementation. Please take your new blood pressure medication, amlodipine 5 mg daily. Please follow-up with your PCP in 1 week. Please discuss management of your blood pressure and renal function. Please continue to self-isolate per [facility] guidelines. Please return to the ED should your symptoms worsen or should you experience fever, difficulty breathing or chest pain. Thank you for allowing us to participate in your care. DISCHARGE CONDITION: Stable TIME SPENT ON DISCHARGE: Equal to 30 minutes. Vital Signs/I&Os Vital Signs Date Time Temp Pulse Resp B/P (MAP) Pulse Ox O2 Delivery O2 Flow Rate FiO2 09/28/20 08:36 97.3 86 16 160/82 (108) 90 Room Air 09/28/20 06:41 1.0 09/27/20 13:03 50 I&O- Last 24 Hours up to 6 AM 09/28/20 06:00 Intake Total 2475 ml Output Total 1200 ml Balance 1275 ml Laboratory Data Labs 24H Laboratory Tests 2 09/27/20 16:55: Bedside Glucose (Misc Panel) 213H 09/27/20 19:38: Bedside Glucose (Misc Panel) 308H 09/28/20 05:34: Nucleated Red Blood Cells % (auto) 0.0, Prothrombin Time 14.0, Prothromb Time International Ratio 1.06, Activated Partial Thromboplast Time 33.2, Fibrinogen 687H, Anion Gap 8, Glomerular Filtration Rate > 60.0, Calcium Level 8.3L, Ferritin 705H, Total Bilirubin 0.4, Direct Bilirubin 0.1, Aspartate Amino Transf (AST/SGOT) 23, Alanine Aminotransferase (ALT/SGPT) 29, Alkaline Phosphatase 96, Lactate Dehydrogenase 438H, Total Creatine Kinase 69, Troponin I < 0.02, ZC-Oum-Q-Type Natriuretic Peptide 217H, Total Protein 6.4, Albumin 2.4L, Albumin/Globulin Ratio 0.6, Procalcitonin 0.21 CBC/BMP Laboratory Tests 09/28/20 05:34 FSBS Laboratory Tests Test 09/27/20 16:55 09/27/20 19:38 Range/Units Bedside Glucose (Misc Panel) 213 308 70-105 MG/DL Microbiology Microbiology 09/24/20 Blood Culture - Preliminary, Resulted No Growth after 72 hours. All specime... 09/24/20 Blood Culture - Preliminary, Resulted No Growth after 72 hours. All specime... Discharge Medications Scheduled Alogliptin Benzoate (Nesina) 12.5 Mg Tablet, 12.5 MG PO DAILY, (Reported) Amlodipine Besylate (Amlodipine Besylate) 5 Mg Tablet, 5 MG PO DAILY Ascorbic Acid (Vitamin C) 250 Mg Tablet, 250 MG PO DAILY Cholecalciferol (Vitamin D3) (Vitamin D3) 25 Mcg Tablet, 25 MCG PO DAILY, (Reported) Dexamethasone (Dexamethasone) 2 Mg Tablet, 1 TAB PO DAILY Metformin HCl (Metformin HCl ER) 500 Mg Tab.er.24h, 500 MG PO TID, (Reported) Omeprazole (Omeprazole) 40 Mg Capsule.dr, 40 MG PO DAILY, (Reported) Rosuvastatin Calcium (Rosuvastatin Calcium) 40 Mg Tablet, 20 MG PO QHS, (Reported) Zinc Sulfate (Zinc Sulfate) 220 Mg Capsule, 220 MG PO DAILY Scheduled PRN Acetaminophen (Acetaminophen) 500 Mg Tablet, 1,000 MG PO Q6H PRN for PAIN, (Reported) Albuterol Sulfate (Ventolin Hfa) 18 Gm Hfa.aer.ad, 2 PUFF INH Q4-6HP PRN for wheezing Docusate Sodium (Docusate Sodium) 100 Mg Capsule, 100 MG PO BID PRN for CONSTIPATION, (Reported) Polyethylene Glycol 3350 (Polyethylene Glycol 3350) 17 Gm Powd.pack, 17 GRAM PO DAILY PRN for CONSTIPATION, (Reported) Allergies Coded Allergies: No Known Allergies (Unverified , 09/24/20) GME ATTESTATION GME ATTESTATION My faculty preceptor for this patient encounter was physically present during the encounter and was fully available. All aspects of the patient interview, examination, medical decision making process, and medical care plan development were reviewed and approved by the faculty preceptor. The faculty preceptor is aware and concurs with the plan as stated in the body of this note and will attest to such by his/her cosignature. ATTENDING NOTE I, Tony Ocampo MD, have independently examined this patient and performed my own physical exam, as well as reviewed the documentation and edited where necessary. I have discussed in detail with the resident / student the findings and plan of treatment as documented by the resident / student and edited their note. I agree with their findings and treatment plan and have edited their documentation. LISETH DENNEY DO Sep 28, 2020 11:59 TONY OCAMPO MD Sep 28, 2020 14:26
[2020-09-28 12:00] VITALS: O2SAT 93
== END 2020-09-28 16:25 | disposition home health service (06) | DRG 177 ==
LOC: M ED 15:18 → M ED INP 17:37 → M 4MAIN 20:45
PROVIDERS: ADMIT Family Medicine; ATTEND Internal Medicine
DX: U07.1 COVID-19 (principal); J12.82 Pneumonia due to coronavirus disease 2019; E11.9 Type 2 diabetes mellitus without complications; I10 Essential (primary) hypertension; G47.33 Obstructive sleep apnea (adult) (pediatric); N18.30 Chronic kidney disease, stage 3 unspecified; Z79.899 Other long term (current) drug therapy; E78.5 Hyperlipidemia, unspecified; K21.9 Gastro-esophageal reflux disease without esophagitis

== ENCOUNTER → 2020-11-05 | Outpatient (CLI) | payer OTHER ==
[~2020-11-05] MED LIST changes: +ACET-683 PO; +AMLO1TAB24 PO; +ASCO250T20 PO; +D-10TAB2 PO; +DEXA2TA PO; +DOCU100C16 PO; +METF-838 PO; +OMEP-221 PO; +POLY1POW38 PO; +ROSU40TA4 PO; +VENTAER INH; +ZINC220CA PO
--- NOTE | 2020-11-05 09:56 | REP ---
INDICATION: F/U FX. COMPARISON: Comparison right hand radiographs April 26, 2020.. TECHNIQUE: Three views of the right hand are provided. FINDINGS: Three views of the right hand demonstrate persistent fracture radiolucency in the obliquely oriented fracture through the 5th metacarpal. This appears to be nonunited. There is minimal soft tissue swelling over the distal metacarpals on the lateral radiograph. Vascular calcification is observed in the distal forearm. No acute bony abnormality is seen. No other fracture is seen. IMPRESSION: Nonunited fracture of the 5th metacarpal. <Electronically signed by Trey Geller > 11/05/20 [id number]
== END ==
LOC: M SOG 08:49
PROVIDERS: ATTEND Orthopaedic Surgery Sports Medicine
DX: S62.356D Nondisplaced fracture of shaft of fifth metacarpal bone, right hand, subsequent encounter for fracture with routine healing (principal); W18.30XD Fall on same level, unspecified, subsequent encounter; Y92.009 Unspecified place in unspecified non-institutional (private) residence as the place of occurrence of the external cause

== ENCOUNTER → 2020-11-07 | Outpatient (CLI) | payer OTHER ==
--- NOTE | 2020-11-07 08:12 | REP ---
INDICATION: PROTEINURIA. COMPARISON: None. TECHNIQUE: Multiple sonographic images of the kidneys. FINDINGS: The right kidney measures 11.9 x 5.0 x 4.7 cm. Left kidney measures 10.3 x 7.2 x 5.4 cm. The kidneys are normal size. Renal cortical echogenicity is normal bilaterally. There is no hydronephrosis or hydroureter on the right or the left. There are no renal calculi. There are no solid or cystic renal masses. Bladder: No bladder wall nodules or polyps are identified. IMPRESSION: Essentially negative renal and bladder ultrasound. <Electronically signed by Clifton Hilton > 11/07/20 [id number]
== END ==
LOC: M RAD 07:13
PROVIDERS: ATTEND Internal Medicine
DX: R80.0 Isolated proteinuria (principal)

== ENCOUNTER → 2020-12-17 | Outpatient (CLI) | payer OTHER | LOC: CANPRECLI → M SOG 07:54 | PROVIDERS: ATTEND Orthopaedic Surgery Sports Medicine | DX: Z53.9 Procedure and treatment not carried out, unspecified reason (principal) ==

== ENCOUNTER → 2020-12-20 | Outpatient (CLI) | payer OTHER ==
--- NOTE | 2020-12-20 17:41 | REP ---
INDICATION: RT NONDISPLACED FX OF SHAFT OF 5TH MC BONE. COMPARISON: Comparison radiographs are from April 26, 2020 and November 05, 2020.. TECHNIQUE: Helical scanning is acquired and 2 mm axial images are re-formatted. Coronal and sagittal MPR images are generated. FINDINGS: There is an obliquely oriented fracture through the [address]th [address] images demonstrate incomplete healing. Fractured radiolucency persists in the medial, lateral, superior, and inferior cortical margins of the fracture. There is slight override as seen on radiographs. Position is unchanged. No carpal or other metacarpal fracture is seen. Distal radius and ulna appear intact. Soft tissues are unremarkable. There is fairly extensive vascular calcification in this young patient along the distribution of the ulnar artery. IMPRESSION: Incomplete healing 5th metacarpal oblique fracture. Prominent vascular calcification in the distribution of the ulnar artery. <Electronically signed by Trey Geller > 12/20/20 [id number]
== END ==
LOC: M RAD 07:45
PROVIDERS: ATTEND Orthopaedic Surgery Sports Medicine
DX: S62.356G Nondisplaced fracture of shaft of fifth metacarpal bone, right hand, subsequent encounter for fracture with delayed healing (principal); X58.XXXA Exposure to other specified factors, initial encounter; Y92.9 Unspecified place or not applicable; I70.209 Unspecified atherosclerosis of native arteries of extremities, unspecified extremity

== ENCOUNTER → 2021-03-21 | Outpatient (CLI) | payer OTHER ==
--- NOTE | 2021-03-21 15:27 | REP ---
INDICATION: NONDISP FX OF SHAFT OF 5TH MC BONE, R HAND, 7THK. COMPARISON: 04/26/2020 and 11/05/2020. TECHNIQUE: There are four views. FINDINGS: There is a known spiral fracture of the 5th digit metacarpal, nondisplaced. This is again identified. There appear to be trabecula traversing the fracture line on the current study suggesting interval healing. The fracture fragments are in satisfactory position and alignment. Minimal adjacent joint spaces are otherwise unremarkable. There are no calcifications or foreign bodies. IMPRESSION: Spiral fracture of the 5th digit metacarpal as described. <Electronically signed by Clifton Hilton > 03/21/21 [id number]
== END ==
LOC: M SOG 15:04
PROVIDERS: ATTEND Orthopaedic Surgery Sports Medicine
DX: S62.35 Nondisplaced fracture of shaft of other metacarpal bone (principal)

== ENCOUNTER → 2021-04-29 | Outpatient (CLI) | payer OTHER ==
--- NOTE | 2021-04-29 08:48 | REP ---
INDICATION: CERVICAL RADICULOPATHY COMPARISON: None. TECHNIQUE: AP, lateral, flexion/extension, bilateral oblique, and open-mouth views. FINDINGS: Alignment and lordosis is maintained. There is no evidence for acute fracture / compression injury or subluxation. No significant degenerative changes are appreciated. Oblique views demonstrate patent neural foramen. Open mouth view demonstrates normal C1-C2 articulation and odontoid process. IMPRESSION: Age-appropriate cervical spine series. <Electronically signed by Albert Castrejon > 04/29/21 [id number]
== END ==
LOC: M SOG 08:07
PROVIDERS: ATTEND Orthopaedic Surgery Sports Medicine
DX: M54.12 Radiculopathy, cervical region (principal)

== ENCOUNTER → 2021-05-05 | Outpatient (CLI) | payer OTHER ==
[~2021-05-05] MED LIST changes: +OMEP-173; -OMEP-218; -OMEP-221 PO; +OMEP40CA5 PO
== END ==
LOC: M RAD 08:33
PROVIDERS: ATTEND Orthopaedic Surgery Sports Medicine
DX: M54.12 Radiculopathy, cervical region (principal)

== ENCOUNTER 2021-06-14 08:54 | Outpatient (RCR) | payer OTHER ==
[~2021-06-14 08:54] MED LIST changes: -OMEP-173; +OMEP-218; +OMEP-221 PO; -OMEP40CA5 PO
== END 2021-06-16 ==
LOC: M PT 08:54
PROVIDERS: ATTEND Orthopaedic Surgery
DX: G56.21 Lesion of ulnar nerve, right upper limb (principal); G56.01 Carpal tunnel syndrome, right upper limb

== ENCOUNTER 2021-06-27 07:40 | Outpatient (RCR) | payer OTHER ==
[~2021-06-27 07:40] MED LIST changes: +OMEP-173; -OMEP-218; -OMEP-221 PO; +OMEP40CA5 PO
== END 2021-07-16 ==
LOC: M PT 07:40
PROVIDERS: ATTEND Orthopaedic Surgery
DX: G56.21 Lesion of ulnar nerve, right upper limb (principal); G56.01 Carpal tunnel syndrome, right upper limb

== ENCOUNTER → 2021-08-07 | Outpatient (REF) ==
[~2021-08-07] MED LIST changes: -OMEP-173; +OMEP-218; +OMEP-221 PO; -OMEP40CA5 PO
== END ==
LOC: M LABSMTC 10:02
PROVIDERS: ATTEND Pediatrics
DX: Z20.822 Contact with and (suspected) exposure to COVID-19 (principal)

== ENCOUNTER → 2022-01-21 | Outpatient (CLI) | payer OTHER ==
[~2022-01-21] MED LIST changes: +OMEP-173; -OMEP-218; -OMEP-221 PO; +OMEP40CA5 PO
== END ==
LOC: M RAD 09:45
PROVIDERS: ATTEND Internal Medicine
DX: N18.9 Chronic kidney disease, unspecified (principal)

== ENCOUNTER → 2022-11-14 | Outpatient (CLI) | payer OTHER | LOC: M RAD 13:52 | PROVIDERS: ATTEND Internal Medicine | DX: R80.9 Proteinuria, unspecified (principal); E11.9 Type 2 diabetes mellitus without complications; N18.9 Chronic kidney disease, unspecified ==